=== PATIENT | male | born 1950 | race Caucasian/White ===

== ENCOUNTER 2019-08-06 05:35 | Inpatient (IN) | payer MEDICARE ==
[2019-08-06] MEDS ORDERED: Sodium Chloride 0.9% 20 ML ONE (06:10)
[2019-08-06] MEDS ORDERED: Bupivacaine PF 0.5% 30 ML VIAL ONE (06:10)
[2019-08-06] MEDS ORDERED: Thrombin 5000 UNITS/5 ML VIAL ONE (06:10)
[2019-08-06 06:33] LABS: #Lymphocytes 1.1 thou/uL (1.20-3.40); #Monocytes 0.8 thou/uL (0.11-0.59); #Neutrophils 7.4 thou/uL (1.40-6.50); %Basophils 0.1 % (0.0-1.0); %Eosinophils 0.1 % (0.0-10.0); %Lymphocytes 11.9 % (21.0-51.0); %Monocytes 8.2 % (0.0-10.0); %Neutrophils 79.6 % (42.0-75.0); Hemoglobin 15.4 g/dL (14.0-18.0); Mean Corpuscular HGB CONC 34.9 g/dL (32.0-36.0); Mean Corpuscular Hemoglobin 32.6 pg (27.0-31.0); Mean Corpuscular Volume 93.5 fL (78.0-98.0); Mean Platelet Volume 7.3 fL (7.4-10.4); Platelet Count 200 thou/uL (130-400); RBC Distribution Width 12.8 % (11.5-14.5); Red Blood Cell (RBC) Count 4.74 mill/uL (4.70-6.10); White Blood Cell (WBC) Count 9.3 thou/uL (4.8-10.8)
[2019-08-06] MEDS ORDERED: Fentanyl 100 MCG/2 ML VIAL ONE ×2 (06:37→13:57)
[2019-08-06 06:41] LABS: INR-International Normal Ratio 1.1; PTT 28.3 SEC (22.9-36.1); Prothrombin Time 13.9 SEC (12.0-14.7)
[2019-08-06] MEDS ORDERED: HYDROmorphone 2 MG/ML VIAL ONE (07:33)
[2019-08-06] MEDS ORDERED: Phenylephrine HCL 10 MG/ML VIAL ONE (09:15)
[2019-08-06] MEDS ORDERED: Ketamine 50 MG/ML (10ML VIAL) ONE (09:39)
--- NOTE | 2019-08-06 10:56 | HP ---
REASON FOR ADMISSION: "I'm here for back surgery." HISTORY OF PRESENT ILLNESS: Mr. Perry Pitts is a very pleasant 68-year-old gentleman with previous spine surgery in 2001 and 2004. He has had 18 months of low back and leg symptoms. These are worsening in spite of modifying his activity, taking medication and seeing extracorporeal circulation specialist. With standing and walking, there are electric sensation that shoots from the lower thoracic spine down the back and into the legs. There is loss of sensation in the left leg more so than the right. These symptoms are preventing him from walking and participating in his activities of daily living. Imaging has revealed multilevel thoracic and lumbar stenosis for which we have offered him surgery. He is here at the hospital to have that done. PAST MEDICAL HISTORY: Diabetes, essential hypertension, COPD, alcohol abuse, chronic idiopathic constipation, arthritis, hyperlipidemia. PAST SURGICAL HISTORY: 2001, spine surgery; 2004, spine surgery; and prior cervical spine surgery as well. ADMISSION MEDICATIONS: Include 1. Glipizide. 2. Gabapentin. 3. Tramadol. 4. Metoprolol. 5. Cyanocobalamin. 6. Spiriva HandiHaler. 7. ProAir HFA. 8. Vitamin B1. 9. Omeprazole. 10. Lisinopril/hydrochlorothiazide. 11. Atorvastatin. 12. Metformin. 13. Sertraline. 14. Milk thistle. 15. Centrum Silver Adult. ALLERGIES: NO KNOWN DRUG ALLERGIES. SOCIAL HISTORY: The patient is a smoker, but tells me he has quit his nicotine products prior to surgery. He does use alcoholic beverages. He is not taking illicit drugs. FAMILY MEDICAL HISTORY: Negative for any anesthesia complications. His father had diabetes and heart disease before he . His mother is alive. REVIEW OF SYMPTOMS: Otherwise negative. PHYSICAL EXAMINATION: Mr. Pitts is 5 feet 10 inches tall and weighs about 218 pounds. He walked into our Neurosurgery clinic under his own power. He looks off balance when walking. He also looks uncomfortable when he leans forward. His cranial nerves are intact. His speech is fluent. There is no dysphasia. In the lower extremities, there is some weakness with hip flexion. There is some quadriceps weakness, both of which are worse on the left than the right. Compared to the more proximal muscles, the distal muscles have better function. On sensory examination, there is a multidermatomal sensory loss in the left lower extremity involving the lateral and anterior thigh and to a lesser extent in the medial portion of the leg below the knee. His reflexes are more brisk than the patient I would imagine with diabetes should have at the knees. There is however no clonus. IMAGING: Radiographic images of the spine revealed that his prior cervical spine surgery was a laminoplasty at C4, C5, C6 and he has no longer any cord compression there. However, there is cord compression at T10-11 and T11-12. There is some severe stenosis just below the conus at L1-2 and L2-3. There is some lateral recess disease on the right at L3-L4. There is a prior laminectomy from L3 to S1. Flexion-extension views do not show instability. ASSESSMENT: Multilevel thoracolumbar stenosis with gait disturbance, mild myelopathy, and neurogenic claudication. I have offered decompressive laminectomy and he would like to proceed. We will take him to the operating room. Informed consent: We discussed indications, risks, benefits, alternatives and expected outcomes from surgery. The risks discussed included, but were not limited to, bleeding, infection, CSF leak, nerve damage, weakness, incontinence, cauda equina injury, arachnoiditis, paralysis, ventilator dependence, wheelchair dependence, loss of vision, cardiopulmonary complications of anesthesia or . Long-term complications included spinal instability and need for future surgery. He understands these risks and wants to proceed. We will take him to the operating room. Job ID: [id number]
[2019-08-06] MEDS ORDERED: Rocuronium Bromide 50 MG/5 ML VIAL ONE (11:04)
[2019-08-06] MEDS ORDERED: Midazolam HCl 2 mg/2 ml Vial ONE (12:01)
[2019-08-06] MEDS ORDERED: Ondansetron PF 4 MG/2 ML Vial ONE ×3 (12:32→12:59)
[2019-08-06] MEDS ORDERED: SUGAMMADEX SODIUM 200 MG/2 ML VIAL ONE (12:57)
[2019-08-06] MEDS ORDERED: diphenhydrAMINE 50 MG/ML VIAL ONE (12:59)
[2019-08-06] MEDS ORDERED: Rocuronium Bromide 10 MG/ML (10ML VIAL) ONE (12:59)
[2019-08-06] MEDS ORDERED: Dexamethasone 20 MG/5 ML VIAL ONE (12:59)
[2019-08-06] MEDS ORDERED: ePHEDrine/0.9% NaCl/PF SYRINGE 50 mg/10 ml ONE (12:59)
[2019-08-06] MEDS ORDERED: Glycopyrrolate 0.2 MG/ML 5 ML SYRINGE ONE (12:59)
[2019-08-06] MEDS ORDERED: PROPOFOL 200 MG/20 ML VIAL ONE (12:59)
[2019-08-06] MEDS ORDERED: HYDROcodone/Acetaminophen 7.5/325 mg Tablet PO PRN (13:15)
[2019-08-06] MEDS ORDERED: diphenhydrAMINE 25 MG CAP PO PRN (13:15)
[2019-08-06] MEDS ORDERED: Morphine 2 MG/ML SYRINGE SLOW IVP PRN (13:15)
[2019-08-06] MEDS ORDERED: Bisacodyl 10 MG SUPP PR PRN (13:15)
[2019-08-06] MEDS ORDERED: diphenhydrAMINE 50 MG/ML VIAL IVP PRN (13:15)
[2019-08-06] MEDS ORDERED: Promethazine HCl 25 MG/ML VIAL IM PRN ×2 (13:15→13:34)
[2019-08-06] MEDS ORDERED: Acetaminophen 325 MG TAB PO PRN (13:15)
[2019-08-06] MEDS ORDERED: traMADol HCl 50 MG TAB PO PRN ×2 (13:15)
[2019-08-06] MEDS ORDERED: Morphine 4 MG/ML VIAL SLOW IVP PRN (13:15)
[2019-08-06] MEDS ORDERED: Milk Of Magnesia 30 ML UDCUP PO PRN (13:15)
[2019-08-06] MEDS ORDERED: Promethazine 25 MG TAB PO PRN (13:15)
[2019-08-06] MEDS ORDERED: Acetaminophen 650 MG Suppository PR PRN (13:15)
[2019-08-06] MEDS ORDERED: Ondansetron PF 4 MG/2 ML Vial IVP PRN (13:15)
[2019-08-06] MEDS ORDERED: Promethazine HCl 12.5 MG SUPP PR PRN (13:15)
[2019-08-06] MEDS ORDERED: PROVENTIL INHALER 6.7 G (200 INHALATIONS) INH PRN (13:17)
[2019-08-06] MEDS ORDERED: HYDROmorphone 2 MG/ML VIAL SLOW IVP PRN (13:34)
[2019-08-06] MEDS ORDERED: Ketorolac Tromethamine 30 MG/ML VIAL IVP PRN (13:34)
[2019-08-06] MEDS ORDERED: Meperidine HCl/PF 25 MG/ML VIAL SLOW IVP PRN (13:34)
[2019-08-06] MEDS ORDERED: Ondansetron HCl/PF 4 MG/2 ML Vial IVP PRN (13:34)
[2019-08-06] MEDS ORDERED: Ipratropium Bromide 2.5 ml Neb NEB PRN (13:48)
--- NOTE | 2019-08-06 14:44 | OP ---
DATE OF PROCEDURE: 08/06/2019 FULL CHARGE BOOKKEEPER: None. PREOPERATIVE INDICATION: Treat pain and prevent neurological deterioration. PREOPERATIVE DIAGNOSIS: Multilevel thoracolumbar stenosis with thoracic myelopathy and neurogenic claudication. POSTOPERATIVE DIAGNOSIS: Multilevel thoracolumbar stenosis with thoracic myelopathy and neurogenic claudication. PROCEDURES PERFORMED: Decompressive laminectomy with medial facetectomy and foraminotomy at T10-T11, T11-T12, L1-L2, L2-L3, L3-L4 (operation at L2-L3 and L3-L4 were redo surgeries involving significant scar tissue dissection and operating microscope). PREOPERATIVE MEDICATION: Ancef 2 g IV. DRAIN NUMBER: One. DRAIN TYPE: 10-Welsh Alex. DESCRIPTION OF PROCEDURE: The patient was brought to the operating room. General endotracheal anesthesia was induced. The patient was positioned prone on the Tay frame with his chest and hips padded appropriately for the frame. A lateral fluoro radiograph was used to decide how much of the previous incision and how much extension we needed to gain access from T10 through L4. We marked at our incision. The thoracolumbar skin was sterilely prepped and draped. We opened with a 10 blade knife and we controlled bleeding with bipolar cautery and monopolar cautery. We used monopolar cautery to dissect through subcutaneous tissues and scar tissue to the thoracodorsal fascia. We incised the fascia in the midline and the scar in the midline and reflected the paraspinal muscles and scar tissue off the spinous processes and lamina from T10 through L2 and the remnant of the lamina of L2, L3, and L4 bilaterally. A lateral fluoro radiograph confirmed the levels upon which we were operating. We started our thoracic decompression and we removed the spinous process from T10 to the top of T12. Using small Kerrison rongeurs, we fashioned a laminectomy. We widened that laminectomy defect with careful rongeuring until we were lateral to the thecal sac at T10-T11 and T11-T12. We ensured that a ball probe could pass through the lateral recess and out the foramen with a T10, T11, T12 nerve roots. We waxed the bone edges and controlled bleeding with gentle bipolar cautery and turned our attention to L1 through L4. Here, we removed the spinous process of L1 and the remainder of the spinous process of L2 and fashioned laminectomy with Kerrison rongeurs. We widened our laminectomy defect until we were in line with the medial portion of the pedicle at L1 and L2. At L2-3, we dissected through scar tissue. Here, the operative microscope was vital. Under microscopic magnification and using microsurgical techniques, we scar from the lateral aspect of the spinal canal. Using Kerrison rongeurs, we performed medial facetectomy and foraminotomy over the L2 nerve roots. We marked our way down carefully dissecting scar tissue L3 all the way to the L3-4 facet and then the pars interarticularis of L4 bilaterally. This area was highly scarred. Kerrison rongeurs were vital and performed medial facetectomies. We removed soft tissue from the lateral recesses as well scar tissue. We ensured that a Choi ball probe could pass through the lateral recess and out the foramen with the L2, L3, and L4 nerve roots bilaterally. The L1 nerve root foramen was probed as well. Once our decompression was secured, we turned our attention to closure. Operative microscope was taken out of the field. We irrigated copiously with bacitracin irrigation. We treated the wound with vancomycin powder. We tunneled the drain inferiorly through a separate stab incision. We closed in anatomical layers over the drain. This was a clean case, no contamination. Job ID: [id number]
[2019-08-06] MEDS: Sodium Chloride 0.9% 1,000 ML IV SCH (15:15)
[2019-08-06] MEDS: Scopolamine 1.5 mg/72 hour Patch TD SCH (18:01)
[2019-08-06 18:36] VITALS: BMI 29.2
[2019-08-06] MEDS: tiZANidine HCl 4 MG TAB PO PRN (19:19)
[2019-08-06] MEDS: CEFAZOLIN 2 GM in Premix Bag 1 BAG IVPB SCH (20:13)
[2019-08-06] MEDS: Metoprolol Tartrate 50 MG TAB PO SCH (20:14)
[2019-08-06] MEDS: HYDROcodone/Acetaminophen 7.5/325 mg Tablet PO PRN (20:20)
[2019-08-07] MEDS: HYDROcodone/Acetaminophen 7.5/325 mg Tablet PO PRN ×4 (01:32→18:21)
[2019-08-07] MEDS: Sodium Chloride 0.9% 1,000 ML IV SCH ×2 (01:33→14:37)
[2019-08-07] MEDS: CEFAZOLIN 2 GM in Premix Bag 1 BAG IVPB SCH ×3 (04:59→20:31)
[2019-08-07] MEDS: Tamsulosin HCl 0.4 MG CAP PO SCH (05:00)
[2019-08-07] MEDS: Mag-Al 1200 mg/1200 mg/30 ML UDCUP PO PRN ×2 (06:39→19:10)
[2019-08-07] MEDS: Metoprolol Tartrate 50 MG TAB PO SCH ×2 (08:32→19:51)
[2019-08-07] MEDS: Gabapentin 300 MG CAP PO SCH (08:32)
[2019-08-07] MEDS: metFORMIN 500 MG TAB PO SCH (08:32)
[2019-08-07] MEDS ORDERED: Lisinopril/Hydrochlorothiazide 20/25 mg Tablet PO SCH (09:00)
--- NOTE | 2019-08-07 12:58 | PRG ---
DATE OF SERVICE: 08/07/2019 This is Georgi Zamudio PA-C dictating a report for Vinny Brown MD. Mr. Pitts is hospital day #1 having undergone multilevel lumbar laminectomies. The patient is complaining of some subjective left leg weakness, although states that this has slightly improved since surgery. He has no leg pain. He has incisional back pain. Main complaint today is nausea. We will work on control of this. He is asked to go home tomorrow with home health and I think this is reasonable. We will continue to work on pain control and his nausea. He has been working with therapies today. He has walked and urinated, but has not had any solid food yet today. We will continue his GENARO drain and ancef as output has been 160cc since surgery. Please call with any changes in patient's neurologic status. Otherwise, we will hope for dismissal home tomorrow with home health. Job ID: [id number] MTDD
[2019-08-07] MEDS: tiZANidine HCl 4 MG TAB PO PRN (18:21)
[2019-08-07] MEDS: hydrALAZINE 20 MG/ML VIAL SLOW IVP PRN (19:49)
[2019-08-07] MEDS: Atorvastatin Calcium 20 MG TAB PO SCH (19:51)
[2019-08-08] MEDS: Simethicone Chewable 80 MG TAB PO PRN ×2 (00:34→06:17)
[2019-08-08] MEDS: CEFAZOLIN 2 GM in Premix Bag 1 BAG IVPB SCH ×3 (03:18→20:56)
[2019-08-08] MEDS: Tamsulosin HCl 0.4 MG CAP PO SCH (05:30)
[2019-08-08] MEDS: Sodium Chloride 0.9% 1,000 ML IV SCH (05:30)
[2019-08-08 06:28] LABS: #Lymphocytes 1.2 thou/uL (1.20-3.40); #Monocytes 0.9 thou/uL (0.11-0.59); #Neutrophils 11.6 thou/uL (1.40-6.50); %Basophils 0.1 % (0.0-1.0); %Eosinophils 0.2 % (0.0-10.0); %Monocytes 6.8 % (0.0-10.0); Hemoglobin 11.9 g/dL (14.0-18.0); Mean Corpuscular HGB CONC 35.5 g/dL (32.0-36.0); Mean Platelet Volume 7.4 fL (7.4-10.4); Platelet Count 163 thou/uL (130-400); RBC Distribution Width 12.3 % (11.5-14.5); Red Blood Cell (RBC) Count 3.62 mill/uL (4.70-6.10); White Blood Cell (WBC) Count 13.8 thou/uL (4.8-10.8)
[2019-08-08 06:46] LABS: Anion Gap 10 mmol/L (10-20); BUN (Urea Nitrogen) 8 mg/dL (8.4-25.7); Calc. Creatinine Clearance 142 mL/min (70-130); Calcium 8.5 mg/dL (7.8-10.44); Carbon Dioxide 28 mmol/L (23-31); Chloride 86 mmol/L (98-107); Estimated GFR-MDRD Greater than 90; Glucose 184 mg/dL (80-115); Potassium 4.7 mmol/L (3.5-5.1)
[2019-08-08 06:51] LABS: Sodium 119 mmol/L (136-145)
[2019-08-08] MEDS ORDERED: Dextrose 5% in Water 1,000 ML IV PRN (08:40)
[2019-08-08] MEDS ORDERED: Dextrose 50% Abboject 50 ML SYRINGE SLOW IVP PRN (08:40)
[2019-08-08] MEDS: Lisinopril 20 MG TAB PO SCH (08:54)
[2019-08-08] MEDS: metFORMIN 500 MG TAB PO SCH (08:54)
[2019-08-08] MEDS: Polyethylene Glycol 3350 17 GM Packet PO SCH (08:54)
[2019-08-08] MEDS: Gabapentin 300 MG CAP PO SCH (08:54)
[2019-08-08] MEDS: Metoprolol Tartrate 50 MG TAB PO SCH ×2 (08:55→20:57)
[2019-08-08 09:26] LABS: Sodium 119 mmol/L (136-145)
--- NOTE | 2019-08-08 10:33 | PRG ---
DATE OF SERVICE: 08/08/2019 This is Georgi Zamudio PA-C dictating a report for Vinny Brown MD. Mr. Pitts is postoperative day #2 having undergone multilevel revision lumbar laminectomies. Overnight, the patient has been stable. However, his drain output has been significant and we will leave this in. This has been all bloody drainage and according to Dr. Antony's note, there was significant scar tissue dissection throughout the surgery. There was no CSF leak, so concern for this drainage to be CSF is very low. The patient denies headache. He states his nausea has improved today. In fact, he is feeling better today. He has had a little bit more movement into the left lower extremity, although he does feel weak. He had one episode of dizziness when walking yesterday. He has no dizziness now. He is completely oriented, interactive and neurologically to me looks improved today than even he was yesterday. Laboratory data was collected given the drain output was high. His white blood cell count is 13.8, up from 9.3 from 08/06. His hemoglobin remained stable at 11.9, down from 15.4. His platelets are 163. His chemistry today shows significant hyponatremia at 119 and these levels were drawn 3 hours apart and has remained at 119. IV fluids have been stopped and he has been completely fluid restricted. I have asked that he have no oral intake of any type of fluid at this time. Nephrology is to see the patient, but again neurologically, the patient is very stable. We will leave the drain in and given its output, we will continue with Ancef. Blood pressure remains stable 160s/80s. He does have hypertension at baseline. He is on metoprolol and his heart rate has been ranging in the 70s to 90s. He is afebrile. His potassium is normal at 4.7. Again, we will await recommendations from Nephrology given the patient's hyponatremia, but the patient will be staying overnight until his sodium improves. The patient is appreciative of our care. He has good strength in the bilateral lower extremities as well as the bilateral upper extremities, though it appears in my exam that he is slightly slower to move the left lower extremity. He can continue to work with therapies. We will check back on him later today. Please call with any changes in patient's neurologic status. Job ID: [id number]
--- NOTE | 2019-08-08 11:00 | PRG ---
DATE OF SERVICE: 08/08/2019 SUBJECTIVE: Mr. Pitts appears to be doing well two days out from revision thoracolumbar decompression. He reports improved leg pain and moves his lower extremities without deficit. His drain output has been high and it is serosanguineous, more sanguinous in nature, it was 400 mL over the course of the last 24 hours by recording. The drain will obviously remain in. Of concern, his sodium on lab assessment this morning was 119. I was concerned this may be a spurious result and had this repeated and it is again 119. As such, I have asked Nephrology to see him. We are restricting his free water at this point. The patient denies history of hyponatremia and appears to be mentating quite well despite this as such it may be chronic. I do not have any preop labs at this point for reference. We will continue to follow up on Nephrology recommendations and monitor drain output and neuro status. Job ID: [id number]
[2019-08-08] MEDS: hydrALAZINE 20 MG/ML VIAL SLOW IVP PRN (11:53)
[2019-08-08] MEDS: HumaLOG 300 UNITS/3 ML VIAL SC PRN ×3 (11:53→20:57)
[2019-08-08] MEDS ORDERED: Amlodipine 5 MG TAB PO SCH (12:45)
[2019-08-08] MEDS: HYDROcodone/Acetaminophen 7.5/325 mg Tablet PO PRN (12:56)
--- NOTE | 2019-08-08 13:21 | CON ---
DATE OF CONSULTATION: 08/08/2019 REASON FOR CONSULTATION: Medical comanagement. REQUESTING PHYSICIAN: Dr. Radha Antony. HISTORY OF PRESENT ILLNESS: A 68-year-old male with known history of hypertension, chronic back pain status post prior surgery, who was admitted by Neurosurgical Service for thoracolumbar laminectomy, given worsening low back pain with radiation to lower legs associated with loss of sensation. The patient had a thoracolumbar laminectomy with fasciectomy and foraminectomy on August 06, 2019. He is two days postop and Hospitalist Service consult was requested for medical management. The patient has history of hypertension, diabetes as well as chronic hyponatremia. He was found earlier today to have acute drop in sodium to 119. Nephrology consult also has been requested. The patient complains of back pain as well as mild abdominal distention, which is improving. Last bowel movement was 2 days ago, but he denied nausea, vomiting, dysuria, hematuria, chest pain, shortness of breath, cough, leg swelling, headache, dizziness, or focal weakness. He has some mild left leg weakness as well as decreased sensation of both lower extremities, which has improved since after surgery. The patient has been on clear liquid, drinking a lot of water since postoperatively, was restarted on regular diet earlier today. PAST MEDICAL HISTORY: 1. Type 2 diabetes. 2. Hypertension. 3. COPD. 4. Chronic alcohol use. 5. Chronic constipation. 6. Arthritis. 7. Hyperlipidemia. PAST SURGICAL HISTORY: Spine surgery x2 in 2001 and 2004 as well as prior cervical surgery. FAMILY HISTORY: Reviewed. Significant for hypertension, heart disease and diabetes in father, who is now . Mother is alive. SOCIAL HISTORY: The patient is a current everyday smoker, smokes about a pack-a-day for up to 50 years. He also drinks alcohol, using about 2 to 3 mixed drinks every day. He denied recreational drug use. ALLERGIES: NO KNOWN DRUG ALLERGIES REPORTED. HOME MEDICATIONS: 1. Albuterol HFA 1 puff inhalation every 4 hours p.r.n. 2. Lipitor 20 mg p.o. daily. 3. Gabapentin 300 mg p.o. daily. 4. Lisinopril/hydrochlorothiazide 20 mg/25 mg p.o. daily. 5. Metformin 500 mg p.o. daily. 6. Metoprolol 50 mg p.o. b.i.d. 7. Multivitamin 1 capsule p.o. daily. 8. Omeprazole 20 mg p.o. daily. 9. Sertraline 100 mg p.o. daily. 10. Spiriva 18 mcg inhalation b.i.d. 11. Tramadol 50 mg p.o. t.i.d. p.r.n. for pain. CURRENT HOSPITAL MEDICATIONS: 1. Cefazolin 2 g every 8 hours. 2. Normal saline at 75 mL/hour. 3. Lipitor 20 mg p.o. daily at bedtime. 4. Gabapentin 300 mg p.o. daily. 5. Lisinopril/hydrochlorothiazide 20/25 one tablet p.o. daily. 6. Metformin 500 mg b.i.d. 7. Metoprolol 50 mg p.o. b.i.d. 8. Protonix 40 mg p.o. daily. 9. MiraLAX 17 g p.o. daily. 10. Scopolamine patch 1.5 mg b.i.d. 11. Sertraline 100 mg p.o. daily. 12. Flomax 0.4 mg p.o. daily. 13. Hydralazine 10 mg IV q.6 p.r.n. for acute elevation in blood pressure. 14. Acetaminophen 650 mg q.4 p.r.n. 15. DuoNeb inhalation. 16. Tramadol 50 mg q.6 p.r.n. for pain. REVIEW OF SYSTEMS: A 12-point review of systems performed was negative other than pertinent positives and negatives included in the history of present illness. PHYSICAL EXAMINATION: VITAL SIGNS: Temperature 97.1, pulse 70, respiratory rate 18, SpO2 of 94% on room air, blood pressure is 167/81. GENERAL: Male patient, in no obvious distress. Afebrile. Anicteric. Acyanotic. HEENT: Normocephalic, atraumatic. Oral mucosa is moist. NECK: Supple with no obvious masses or lymphadenopathy. CARDIOVASCULAR: Regular rhythm and rate with normal heart sounds one and two. RESPIRATORY: Fair air entry bilaterally with no obvious crackle or rhonchi or use of accessory muscles. GI: Abdomen is mildly distended, full, soft, nontender, with normal bowel sounds. EXTREMITIES: Grossly normal looking atraumatic with no edema or erythema. Distal pulses are palpable. TIE KNITTER HELPER: Conscious, alert, and oriented x3 with appropriate mental status. Cranial nerves 2 through 12 are grossly intact. The patient moves all extremities. DIAGNOSTIC DATA: CBC showed WBC count of 13.8, hemoglobin of 11.9, MCV of 93.0, platelet of 163. Of note, on August 06, WBC count was 9.3 and hemoglobin was 15.4. BMP today showed sodium 119, potassium 4.7, chloride 86, CO2 of 28, BUN 8, creatinine 0.66, glucose 184, calcium 8.5. ASSESSMENT: 1. Hyponatremia. Acuity is unclear. However, the patient is asymptomatic. This most likely is due to syndrome of inappropriate antidiuretic hormone secretion with acute worsening due to anesthesia as well as crystalloid use. Postoperatively, the patient has been on clear liquid and also has been drinking a lot of water. Syndrome of inappropriate antidiuretic hormone secretion the patient is on thiazide and sertraline. Poor solute intake is another concern given chronic alcohol use. The patient is currently neurologically intact. 2. Uncontrolled hypertension. 3. Diabetes mellitus with hyperglycemia. 4. Status post thoracolumbar laminectomy. 5. Chronic back pain. 6. Depression with anxiety. 7. Acute blood loss anemia with hemoglobin trending downwards from 15.4 presurgery to 11.9. 8. History of constipation. 9. Tobacco abuse disorder. 10. Chronic obstructive pulmonary disease with no acute exacerbation. PLAN: 1. We will discontinue IV fluid. We will also discontinue thiazide diuretics. 2. We will add amlodipine to get adequate BP control. 3. We will continue lisinopril, metoprolol and as needed hydralazine. 4. We will start sliding scale insulin in addition to metformin to get adequate blood sugar control. 5. Nicotine replacement will be commenced. 6. We will monitor for alcohol withdrawal, given history of chronic alcohol use. 7. We will get urine osmolality, urine sodium, as well as serum osmolality. 8. Analgesia as per primary attending. 9. PT/OT as per primary attending. 10. Further treatment to follow depending on hospital course. 11. Code status: Full code. The patient's spouse is the surrogate decision maker. Many thanks for involving us in the care of this patient. We will follow along with you. Job ID: [id number]
[2019-08-08 16:15] LABS: Bacteria/HPF None Seen HPF (None Seen); Bilirubin Negative (Negative); Blood, Urine Negative (Negative); Clarity Clear (Clear); Glucose, Urine (Dipstick) 200 mg/dL (Negative); Leukocyte Negative Leu/uL (Negative); Nitrite Negative (Negative); Protein, Urine (Dipstick) Negative (Neg-Trace); RBC/HPF None Seen HPF (0-3); Squamous Epithelial None Seen HPF (0-3); Urobilinogen Normal mg/dL (Less than 2); WBC/HPF 0-3 HPF (0-3)
[2019-08-08 16:18] LABS: Urine Culture Reflex No No
[2019-08-08] MEDS ORDERED: Tolvaptan 15 MG TAB PO SCH (17:45)
[2019-08-08] MEDS: Atorvastatin Calcium 20 MG TAB PO SCH (20:57)
--- NOTE | 2019-08-08 21:18 | CON ---
DATE OF CONSULTATION: CONSULTING PHYSICIAN: Suresh Pacheco MD REQUESTING PHYSICIAN: Dr. Antony. REASON FOR CONSULTATION: Worsening hyponatremia. IMPRESSION: Worsening hyponatremia. This is likely in the context of syndrome of inappropriate antidiuretic hormone secretion going by the urine chemistry. PLAN: 1. 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 2. I do agree with discontinuation of normal saline. 3. The patient to be on regular diet with high amount of protein devoid of animal meat. 4. Monitor the sodium level closely. 5. We will start this patient on anti-ADH medication tolvaptan. 6. Discontinue hydrochlorothiazide. HISTORY OF PRESENT ILLNESS: History is that of 68-year-old gentleman who did undergo thoracolumbar laminectomy because of worsening low back pain. The patient was admitted on the and blood work was carried out today that showed sodium of 119. The patient did complain of some degree of shortness of breath and according to the nurses, possible mental status change. The patient at the time of evaluation, seems to be very clear minded. As a result of these findings, decision has been taken to involve Ren[facility] in the management of this case. PAST MEDICAL HISTORY: Significant for type 2 diabetes, hypertension, COPD, alcohol abuse, chronic constipation, dyslipidemia, and arthritis. MEDICATIONS: Reviewed and as documented on [employer]. ALLERGIES: NO KNOWN DRUG ALLERGIES. FAMILY HISTORY: Not significantly related to present illness. PHYSICAL EXAMINATION: GENERAL: The patient was found not to be in any obvious distress. VITAL SIGNS: Noted with the following vital signs; afebrile, temperature 99, pulse 73, blood pressure 189/72, respiratory rate of 18, O2 saturations are 95%. HEENT: Unremarkable. Moist oral mucosa. NECK: Supple. No conjunctival injection or icterus. CARDIOVASCULAR: First and second heart sounds were heard. RESPIRATORY: Clear to auscultation. DIGESTIVE: Revealed an obese abdomen. EXTREMITIES: No peripheral edema. SKIN: No new gross rash. LYMPHATICS: No peripheral lymphadenopathy. 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 Thank you for this consultation. We will follow with you. Job ID: [id number]
[2019-08-09] MEDS: CEFAZOLIN 2 GM in Premix Bag 1 BAG IVPB SCH ×3 (03:37→20:01)
[2019-08-09] MEDS: HYDROcodone/Acetaminophen 7.5/325 mg Tablet PO PRN ×4 (03:45→20:36)
[2019-08-09] MEDS: HumaLOG 300 UNITS/3 ML VIAL SC PRN ×4 (05:35→20:35)
[2019-08-09] MEDS: Tamsulosin HCl 0.4 MG CAP PO SCH (05:37)
[2019-08-09 05:40] LABS: #Lymphocytes 0.9 thou/uL (1.20-3.40); #Monocytes 0.7 thou/uL (0.11-0.59); #Neutrophils 7.8 thou/uL (1.40-6.50); %Eosinophils 0.5 % (0.0-10.0); %Lymphocytes 9.7 % (21.0-51.0); %Monocytes 7.7 % (0.0-10.0); %Neutrophils 82.1 % (42.0-75.0); Hemoglobin 12.9 g/dL (14.0-18.0); Mean Corpuscular HGB CONC 34.6 g/dL (32.0-36.0); Mean Corpuscular Hemoglobin 32.2 pg (27.0-31.0); Mean Corpuscular Volume 92.9 fL (78.0-98.0); Mean Platelet Volume 7.7 fL (7.4-10.4); Platelet Count 188 thou/uL (130-400); RBC Distribution Width 12.3 % (11.5-14.5); White Blood Cell (WBC) Count 9.5 thou/uL (4.8-10.8)
[2019-08-09 05:57] LABS: Anion Gap 11 mmol/L (10-20); BUN (Urea Nitrogen) 8 mg/dL (8.4-25.7); Calc. Creatinine Clearance 127 mL/min (70-130); Calcium 9.4 mg/dL (7.8-10.44); Carbon Dioxide 31 mmol/L (23-31); Chloride 94 mmol/L (98-107); Estimated GFR-MDRD Greater than 90; Glucose 204 mg/dL (80-115); Sodium 132 mmol/L (136-145)
--- NOTE | 2019-08-09 07:46 | PRG ---
DATE OF SERVICE: 08/09/2019 Mr. Pitts is 3 days out from a long segment thoracolumbar decompression for a very tight thoracic and upper lumbar stenosis. Mr. Pitts is very happy with the relief of the pain in his legs. He can stand and walk again, and he feels that he has had significant improvement since surgery. There is some numbness that is residual, but improving. His drain output was high over the weekend and the sodium measured quite low at 119. I saw Mr. Pitts this morning. He does not have any new neurological deficit. He feels well. The drain output has been high, but it is tapering down. His sodium is 132, which is significantly better. My plan for Mr. Pitts is to continue his ambulation today to watch the sodium carefully and to remove his drain once it crosses our threshold of about 5 mL every hours. Once the drain is out, the sodium is stabilized and he is safe for activities of daily living, then he can be discharged. Job ID: [id number]
[2019-08-09] MEDS: metFORMIN 500 MG TAB PO SCH (08:48)
[2019-08-09] MEDS: Metoprolol Tartrate 50 MG TAB PO SCH ×2 (08:48→20:01)
[2019-08-09] MEDS: Lisinopril 20 MG TAB PO SCH (08:49)
[2019-08-09] MEDS: Gabapentin 300 MG CAP PO SCH (08:49)
[2019-08-09] MEDS: Polyethylene Glycol 3350 17 GM Packet PO SCH (08:51)
[2019-08-09] MEDS ORDERED: Tolvaptan 15 MG TAB PO SCH (09:00)
[2019-08-09] MEDS ORDERED: NPH, Human Insulin Isophane 300 UNIT/3 ML VIAL SC SCH (12:30)
[2019-08-09] MEDS: Scopolamine 1.5 mg/72 hour Patch TD SCH (14:12)
[2019-08-09] MEDS: Atorvastatin Calcium 20 MG TAB PO SCH (20:01)
--- NOTE | 2019-08-09 22:34 | PDOC.HOSPP ---
- Subjective Encounter Date: 08/09/19 Encounter Time: 11:00 Subjective: Patient seen and examined for med mngt. No CP/SOB or focal deficits. No new complaints. No overnight events - Objective Vital Signs & Weight: Vital Signs (12 hours) Temp Pulse Resp BP Pulse Ox 08/09/19 19:40 97.9 F 76 16 126/72 94 L 08/09/19 15:33 97.8 F 72 18 120/67 94 L Weight Weight 204 lb 4 oz I&O: 08/08/19 08/09/19 08/10/19 06:59 06:59 06:59 Intake Total 2725 1540 1550 Output Total 2990 1205 1772 Balance -673 -7752 -687 Result Diagrams: 08/09/19 05:10 08/10/19 05:03 Additional Labs: Accuchecks 08/09/19 08/09/19 08/09/19 20:32 15:35 11:56 POC Glucose 278 H 185 H 224 H 08/09/19 05:37 POC Glucose 207 H Hospitalist ROS - Review of Systems Respiratory: denies: cough, dry, shortness of breath, hemoptysis, SOB with excertion, pleuritic pain, sputum, wheezing, other Cardiovascular: denies: chest pain, palpitations, orthopnea, paroxysmal noc. dyspnea, edema, light headedness, other - Medication Medications: Active Medications Generic Name Dose Route Start Last Admin Trade Name Freq PRN Reason Stop Dose Admin Hydrocodone Bitart/Acetaminophen 2 tab 08/06/19 13:15 08/09/19 20:36 Spencer 7.5/325 PO 2 tab Q4H PRN Administration Moderate to Severe Pain (6-10) Al Hydroxide/Mg Hydroxide 30 ml 08/06/19 13:15 08/07/19 19:10 Maalox PO 30 ml Q4H PRN Administration Indigestion Atorvastatin Calcium 20 mg 08/07/19 21:00 08/09/19 20:01 Lipitor PO 20 mg HS SVETLANA Administration Gabapentin 300 mg 08/07/19 09:00 08/09/19 08:49 Neurontin PO 300 mg DAILY SVETLANA Administration Hydralazine HCl 10 mg 08/07/19 19:44 08/08/19 11:53 Apresoline SLOW IVP 10 mg Q15MIN PRN Administration .SBP > 180, MAX 10 DOSES Cefazolin Sodium/Dextrose 2 gm 50 mls @ 100 mls/hr 08/06/19 20:00 08/09/19 20 :01 / Device IVPB 50 mls 0400,1200,2000 SVETLANA Administration Insulin Human Lispro 0 units 08/08/19 08:40 08/09/19 20:35 Humalog SC 4 unit .MILD SLIDING SCALE PRN Administration Mild Correctional Scale Lisinopril 20 mg 08/08/19 09:00 08/09/19 08:49 Zestril PO 20 mg DAILY SVETLANA Administration Metformin HCl 500 mg 08/07/19 08:00 08/09/19 08:48 Glucophage PO 500 mg QAM-WM SVETLANA Administration Metoprolol Tartrate 50 mg 08/06/19 21:00 08/09/19 20:01 Lopressor PO 50 mg BID SVETLANA Administration Ondansetron HCl 4 mg 08/06/19 13:15 08/07/19 23:19 Zofran IVP 4 mg DAILYPRN PRN Administration Nausea/Vomiting Pantoprazole Sodium 40 mg 08/07/19 09:00 08/09/19 08:49 Protonix PO 40 mg DAILY SVETLANA Administration Polyethylene Glycol 17 gm 08/08/19 09:00 08/09/19 08:51 Miralax PO Not Given DAILY [facility] Promethazine HCl 12.5 mg 08/06/19 13:15 08/08/19 06:19 Phenergan PO 12.5 mg Q4H PRN Administration Nausea/Vomiting Scopolamine 1.5 mg 08/06/19 15:00 08/09/19 14:12 Transderm Scop TD Not Given Q3D [facility] Sertraline HCl 100 mg 08/07/19 09:00 08/09/19 08:48 Zoloft PO 100 mg DAILY SVETLANA Administration Simethicone 80 mg 08/08/19 00:25 08/08/19 06:17 Mylicon Chewable PO 80 mg Q6H PRN Administration Gas Pain Sodium Chloride 10 ml 08/06/19 13:15 08/09/19 08:48 Flush - Normal Saline IVF 10 ml PRN PRN Administration Saline Flush Tamsulosin HCl 0.4 mg 08/07/19 06:00 08/09/19 05:37 Flomax PO Not Given 0600 [facility] Tizanidine HCl 4 mg 08/06/19 13:15 08/07/19 18:21 Zanaflex PO 4 mg Q6H PRN Administration Muscle Spasm Tramadol HCl 100 mg 08/06/19 13:15 08/06/19 19:19 Ultram PO 100 mg Q6H PRN Administration Severe Pain (7-10) - Exam General Appearance: NAD Heart: RRR, no gallops Respiratory: CTAB, no rales Gastrointestinal: soft, non-distended, normal bowel sounds Extremities: no cyanosis, no clubbing Hosp A/P - Plan DVT proph w/SCDs Hyponatremia due to SIADH DM2 HLD HLD PLAN: Sodium responded to Tolvaptan AM labs Cont PT Cont other meds as above
--- NOTE | 2019-08-09 23:57 | PRG ---
DATE OF SERVICE: 08/09/2019 SUBJECTIVE: The patient was seen and examined, noted with the following vital signs. OBJECTIVE: VITAL SIGNS: Afebrile, temperature 97.8, pulse 72, respiratory rate of 18, O2 saturations 94%, blood pressure 120/67. HEENT: Unremarkable. CARDIOVASCULAR: First and second heart sounds were heard. RESPIRATORY SYSTEM: Clear to auscultation. DIGESTIVE SYSTEM: Revealed a benign abdomen. EXTREMITIES: No peripheral edema. SKIN: No new gross rash. LYMPHATICS: No peripheral lymphadenopathy. IMPRESSION: Hyponatremia in the context of syndrome of inappropriate antidiuretic hormone secretion, much improved, status post improved dose of tolvaptan. PLAN: 1. Discontinue tolvaptan. 2. Increase protein intake with devoid of animal meat on a regular diet. 3. Further management to be dependent on the clinical course. Job ID: [id number]
[2019-08-10] MEDS: CEFAZOLIN 2 GM in Premix Bag 1 BAG IVPB SCH (03:11)
[2019-08-10] MEDS: Tamsulosin HCl 0.4 MG CAP PO SCH (05:30)
[2019-08-10] MEDS: HumaLOG 300 UNITS/3 ML VIAL SC PRN ×2 (05:45→11:24)
[2019-08-10 05:52] LABS: Anion Gap 11 mmol/L (10-20); BUN (Urea Nitrogen) 12 mg/dL (8.4-25.7); Calc. Creatinine Clearance 130 mL/min (70-130); Carbon Dioxide 32 mmol/L (23-31); Chloride 99 mmol/L (98-107); Estimated GFR-MDRD Greater than 90; Glucose 180 mg/dL (80-115); Potassium 3.9 mmol/L (3.5-5.1); Sodium 138 mmol/L (136-145)
--- NOTE | 2019-08-10 06:44 | PRG ---
DATE OF SERVICE: 08/10/2019 I saw Perry Pitts in his hospital room this morning. The drain tapered off nicely and has been removed. His pain is well controlled. He has been up and ambulating. He is ready for discharge. No fevers have been recorded. His other vital signs are stable. His neurological function is good. The incision is well approximated. There is a dressing on it currently. Mr. Pitts is ready for discharge. We will ensure that the sutures were removed 2 to 3 weeks after the operation. We discussed home going activity restrictions and wound care. We will make prescriptions available to him on discharge. Job ID: [id number] [facility]
[2019-08-10] MEDS: HYDROcodone/Acetaminophen 7.5/325 mg Tablet PO PRN ×2 (07:06→11:23)
[2019-08-10] MEDS: Polyethylene Glycol 3350 17 GM Packet PO SCH (08:25)
[2019-08-10] MEDS: Lisinopril 20 MG TAB PO SCH (08:25)
[2019-08-10] MEDS: metFORMIN 500 MG TAB PO SCH (08:25)
[2019-08-10] MEDS: Gabapentin 300 MG CAP PO SCH (08:25)
[2019-08-10] MEDS: Metoprolol Tartrate 50 MG TAB PO SCH (08:25)
[2019-08-10] MEDS ORDERED: Multivit, Therapeutic 1 TAB PO SCH (09:00)
[2019-08-10] MEDS ORDERED: MILK THISTLE 175 MG PO SCH (09:00)
[2019-08-10 11:22] VITALS: BP 119/67; TEMP 98.5
== END 2019-08-10 12:39 | disposition home or self-care (01) | DRG 519 ==
LOC: SDC 05:35 → SURG A 16:15
PROVIDERS: ADMIT Neurological Surgery; ATTEND Neurological Surgery
PROC: 00NX0ZZ Release Thoracic Spinal Cord, Open Approach (ICD-10-PCS; principal; 2019-08-06)
PROC: 00NY0ZZ Release Lumbar Spinal Cord, Open Approach (ICD-10-PCS; 2019-08-06)
PROC: 01NB0ZZ Release Lumbar Nerve, Open Approach (ICD-10-PCS; 2019-08-06)
DX: M48.05 Spinal stenosis, thoracolumbar region (principal); E22.2 Syndrome of inappropriate secretion of antidiuretic hormone; D62 Acute posthemorrhagic anemia; G99.2 Myelopathy in diseases classified elsewhere; I10 Essential (primary) hypertension; J44.9 Chronic obstructive pulmonary disease, unspecified; M19.91 Primary osteoarthritis, unspecified site; E78.5 Hyperlipidemia, unspecified; Z79.84 Long term (current) use of oral hypoglycemic drugs; Z79.899 Other long term (current) drug therapy; Z72.89 Other problems related to lifestyle; F10.20 Alcohol dependence, uncomplicated; G89.29 Other chronic pain; R11.0 Nausea; E11.65 Type 2 diabetes mellitus with hyperglycemia; F17.200 Nicotine dependence, unspecified, uncomplicated
CPT/HCPCS: 36415; 36416; 76000; 80048; 81001; 83930; 83935; 84300; 84443; 85025; 85610; 85730; J0131; J0360; J0690; J1100; J1170; J1200; J1815; J2250; J2370; J2405; J2704; J3010; J3370; J3490; J7620; Q0169; S0020